=== PATIENT | male | born 1990 | race African-American/Black ===

== ENCOUNTER 2024-03-30 11:02 | Observation (INO) | payer OTHER ==
[2024-03-30 12:26] LABS: BASO % 0.3 % (0-2.0); EOS % 5.9 % (0-4.5); HEMATOCRIT 37.6 % (35.4-49); HEMOGLOBIN 12.2 GM/dL (11.7-16.9); LYMPH % 27.3 % (8-40); MCH 28.8 pg (25.7-33.7); MCHC 32.3 g/dl (32.0-35.9); MEAN CELL VOLUME 89.2 fl (80-96); MEAN PLT VOLUME 8.8 fl (7.5-11.1); MONO % 5.4 % (3.8-10.2); NEUT % 61.1 % (42.8-82.8); PLATELET COUNT 136 10^3/uL (134-434); RBC 4.22 M/mm3 (4.00-5.60); RDW 17.9 % (11.9-15.9); WHITE BLOOD COUNT 4.1 K/mm3 (4.0-10.0)
[2024-03-30 12:57] LABS: ACTIVATED PTT 34.6 SECONDS (25.2-36.5); INR 0.93 (0.83-1.09); PROTHROMBIN TIME (PATIENT) 10.2 SEC (9.7-13.0)
[2024-03-30 12:58] LABS: ALBUMIN 4.3 g/dl (3.4-5.0); CALCIUM 10.3 mg/dL (8.5-10.1); CHLORIDE 105 mmol/L (98-107); SODIUM 138 mmol/L (136-145)
[2024-03-30 13:00] LABS: ANION GAP 9 mmol/L (4-13); BLOOD UREA NITROGEN 78.8 mg/dL (7-18); CO2 25 mmol/L (21-32)
[2024-03-30] MEDS ORDERED: LIDOCAINE HCL 1%, 10 MG/ML (20ML VIAL) ONE (13:00)
[2024-03-30 13:02] LABS: CREATININE 18.8 mg/dL (0.55-1.3)
[2024-03-30 13:03] LABS: GLUCOSE,RANDOM 92 mg/dL (74-106); SGPT/ALT 15 U/L (13-61)
[2024-03-30 13:05] LABS: BILIRUBIN,TOTAL 0.6 mg/dL (0.2-1); TOT PROT 7.3 g/dl (6.4-8.2)
[2024-03-30 13:07] LABS: SGOT/AST 16 U/L (15-37)
[2024-03-30 13:10] VITALS: BMI 22.5
[2024-03-30 13:11] LABS: ALK PHOS 71 U/L (45-117)
[2024-03-30] MEDS: SODIUM CHLORIDE 1,000 ML IV SCH (13:34)
[2024-03-30 13:44] LABS: HIV INTERPRETATION NEGATIVE (NEGATIVE)
[2024-03-30] MEDS ORDERED: PROPOFOL 20 ML ONE ×3 (14:00→15:16)
[2024-03-30] MEDS ORDERED: MIDAZOLAM HCL 2 MG/2 ML SINGLE DOSE VIAL ONE (14:01)
[2024-03-30] MEDS ORDERED: ceFAZolin SODIUM 1 GM VIAL ONE (14:17)
[2024-03-30] MEDS: ceFAZolin SODIUM 1 GM VIAL IVPB ONE (14:20)
[2024-03-30] MEDS ORDERED: ONDANSETRON 4 MG/2 ML VIAL IVPUSH PRN (15:15)
[2024-03-30] MEDS: LIDOCAINE HCL 1%, 10 MG/ML (20ML VIAL) INF ONE (15:33)
[2024-03-30] MEDS ORDERED: hydrALAZINE HCL 20 MG/ML VIAL ONE (15:54)
[2024-03-30] MEDS: hydrALAZINE HCL 20 MG/ML VIAL IVPUSH ONE (16:00)
[2024-03-30] MEDS ORDERED: hydrALAZINE HCL 20 MG/ML VIAL IVPUSH ONE (16:04)
[2024-03-30] MEDS ORDERED: SODIUM CHLORIDE 250 ML IV PRN (16:22)
[2024-03-30 16:27] VITALS: TEMP 97.3
[2024-03-30 17:13] VITALS: BP 207/118; PULSE 76; RESP 20
== END 2024-03-30 16:36 | disposition left against medical advice (07) ==
LOC: JER 11:02 → JERBED 12:11 → INTOOBSV 12:11
PROVIDERS: ADMIT Internal Medicine; ATTEND Internal Medicine
PROC: 3E023GC Introduction of Other Therapeutic Substance into Muscle, Percutaneous Approach (ICD-10-PCS; 2024-03-30)
PROC: 3E033GC Introduction of Other Therapeutic Substance into Peripheral Vein, Percutaneous Approach (ICD-10-PCS; 2024-03-30)
PROC: 3E0337Z Introduction of Electrolytic and Water Balance Substance into Peripheral Vein, Percutaneous Approach (ICD-10-PCS; 2024-03-30)
PROC: 02PA33Z Removal of Infusion Device from Heart, Percutaneous Approach (ICD-10-PCS; principal; 2024-03-30 14:30)
PROC: 03H533Z Insertion of Infusion Device into Right Axillary Artery, Percutaneous Approach (ICD-10-PCS; 2024-03-30 14:30)
DX: Z45.2 Encounter for adjustment and management of vascular access device (principal); I12.9 Hypertensive chronic kidney disease with stage 1 through stage 4 chronic kidney disease, or unspecified chronic kidney disease; Z99.2 Dependence on renal dialysis; F31.9 Bipolar disorder, unspecified
CPT/HCPCS: 36415; 71045-TC-FY; 76000-TC-FY; 80053; 83735; 85025; 85610; 85730; 86803; 86850; 86900; 86901; 87340; 87389; 93005; 93010; 96361; 96372; 96374; 99285-25; C1750; G0378; J1644

== ENCOUNTER 2024-06-23 06:07 | Day surgery (SDC) | payer OTHER ==
[2024-06-23] MEDS ORDERED: POVIDONE-IODINE OINTMENT 10% - 28.4 GM TUBE ONE (07:07)
[2024-06-23] MEDS ORDERED: HEPARIN NA (PORCINE) 5,000 UNITS/ML 1ML VIAL ONE (07:07)
[2024-06-23] MEDS ORDERED: PAPAVERINE HCL 30 MG/1 ML 10 ML VIAL NR ONE (07:07)
[2024-06-23] MEDS ORDERED: LIDOCAINE HCL 1%, 10 MG/ML (20ML VIAL) ONE (07:07)
[2024-06-23] MEDS ORDERED: MIDAZOLAM HCL 2 MG/2 ML SINGLE DOSE VIAL ONE (07:54)
[2024-06-23] MEDS ORDERED: PROPOFOL 40 ML ONE (07:54)
[2024-06-23] MEDS ORDERED: ceFAZolin SODIUM 1 GM VIAL ONE (08:06)
[2024-06-23] MEDS: ceFAZolin SODIUM 1 GM VIAL IVPB ONE (08:07)
[2024-06-23] MEDS: LIDOCAINE HCL 1%, 10 MG/ML (20ML VIAL) INF ONE ×2 (08:22)
[2024-06-23] MEDS: POVIDONE-IODINE OINTMENT 10% - 28.4 GM TUBE TP ONE (08:33)
[2024-06-23] MEDS ORDERED: ONDANSETRON 4 MG/2 ML VIAL IVPUSH PRN (09:30)
[2024-06-23] MEDS ORDERED: ACETAMINOPHEN 325 MG TABLET (FP) ONE (10:11)
[2024-06-23] MEDS: ACETAMINOPHEN 500 MG TABLET (FP) PO SCH (10:14)
[2024-06-23] MEDS ORDERED: oxyCODONE HCL 5 MG TABLET ONE (10:18)
[2024-06-23] MEDS: oxyCODONE HCL 5 MG TABLET PO PRN (10:18)
[2024-06-23 10:58] VITALS: TEMP 97.5
[2024-06-23] MEDS ORDERED: ACETAMINOPHEN INJECTION 100 ML ONE (11:16)
[2024-06-23] MEDS: cloNIDine HCL 0.1 MG TABLET PO SCH (11:28)
[2024-06-23] MEDS: NIFEdipine E.R. 90 MG TABLET PO SCH (11:29)
[2024-06-23] MEDS: LOSARTAN POTASSIUM 50 MG TABLET PO SCH (11:30)
[2024-06-23] MEDS: LABETALOL HCL 200 MG TABLET (FP) PO SCH (11:30)
[2024-06-23] MEDS ORDERED: SODIUM CHLORIDE 250 ML IV PRN (11:56)
[2024-06-23] MEDS: SEVELAMER CARBONATE 800 MG TAB (FP) PO SCH (13:31)
[2024-06-23 16:04] LABS: HEPATITIS B SURF AG NON-MATERN NON-REACTIVE (NONREACTIVE)
[2024-06-23 16:47] VITALS: RESP 18
[2024-06-23 18:32] VITALS: BP 128/103; PULSE 82
[2024-06-23] MEDS ORDERED: QUEtiapine FUMARATE 200 MG TABLET PO SCH (22:00)
== END 2024-06-23 19:30 | disposition home or self-care (01) ==
LOC: JASUSAT 06:07 → J5S 10:55 → JASUSAT 19:30
PROVIDERS: ATTEND Surgery
PROC: 03180ZD Bypass Left Brachial Artery to Upper Arm Vein, Open Approach (ICD-10-PCS; principal; 2024-06-23 08:00)
DX: I12.0 Hypertensive chronic kidney disease with stage 5 chronic kidney disease or end stage renal disease (principal); N18.6 End stage renal disease
CPT/HCPCS: 36415; 84132; 86704; 86706; 87340; 94760; J0131; J1644

== ENCOUNTER 2024-08-12 06:05 | Day surgery (SDC) | payer OTHER ==
[2024-08-09 11:57] VITALS: BMI 20.9
[2024-08-12] MEDS ORDERED: MIDAZOLAM HCL 2 MG/2 ML SINGLE DOSE VIAL ONE ×2 (09:30→10:35)
[2024-08-12] MEDS ORDERED: PROPOFOL 20 ML ONE ×8 (10:33→13:20)
[2024-08-12] MEDS ORDERED: DEXAMETHASONE SOD PHOSPHATE 4 MG/1 ML VIAL ONE (10:41)
[2024-08-12] MEDS ORDERED: ONDANSETRON 4 MG/2 ML VIAL ONE (10:41)
[2024-08-12] MEDS: LIDOCAINE HCL 1%, 10 MG/ML (20ML VIAL) INF ONE (10:48)
[2024-08-12] MEDS ORDERED: LABETALOL HCL 20 MG/4 ML VIAL ONE (12:15)
[2024-08-12] MEDS ORDERED: ACETAMINOPHEN INJECTION 100 ML ONE (13:04)
[2024-08-12] MEDS ORDERED: POVIDONE-IODINE OINTMENT 10% - 28.4 GM TUBE ONE (13:24)
[2024-08-12] MEDS ORDERED: SODIUM CHLORIDE 0.9% P/F 10 ML VIAL IJ ONE (13:48)
[2024-08-12] MEDS ORDERED: SODIUM CHLORIDE 1,000 ML IV SCH (14:00)
[2024-08-12 14:05] VITALS: TEMP 97.2
[2024-08-12 14:14] VITALS: BP 199/112
[2024-08-12 14:59] VITALS: PULSE 79; RESP 14
== END 2024-08-12 14:46 | disposition left against medical advice (07) ==
LOC: JASU-SURG 06:05
PROVIDERS: ATTEND Surgery
PROC: 03180ZD Bypass Left Brachial Artery to Upper Arm Vein, Open Approach (ICD-10-PCS; principal; 2024-08-12 09:30)
DX: I12.0 Hypertensive chronic kidney disease with stage 5 chronic kidney disease or end stage renal disease (principal); N18.6 End stage renal disease; Z99.2 Dependence on renal dialysis
CPT/HCPCS: 94760